=== PATIENT | female | born 1990 | race Caucasian/White ===

== ENCOUNTER 2021-05-11 07:05 | Emergency (ER) | payer OTHER ==
[~2021-05-11] VITALS: Ht 172.7 cm; Wt 61.2 kg
[2021-05-11] MEDS ORDERED: FAMOTIDINE 20 MG/2 ML VIAL IV STA (07:13)
[2021-05-11] MEDS ORDERED: CAPSAICIN 0.025% CREAM TP STA (07:13)
[2021-05-11] MEDS ORDERED: SODIUM CHLORIDE 0.9% 1000ML 1,000 ML IV STA (07:13)
[2021-05-11] MEDS ORDERED: METOCLOPRAMIDE HCL 10 MG/2ML VIAL IV ONE (07:15)
[2021-05-11] MEDS ORDERED: PROMETHAZINE HC25 M1 PO (07:26)
[2021-05-11 07:40] LABS: BASOPHILS # (AUTO) 0.1 (0.0-0.1); BASOPHILS % 0.4 % (0.0-1.0); EOSINOPHILS % 0.3 % (0.0-6.0); HEMOGLOBIN 12.8 g/dL (12.0-16.0); LYMPHOCYTES # (AUTO) 1.5 (1.0-3.2); MEAN CORPUSCULAR HEMOGLOBIN 33.8 pg (28-32); MEAN CORPUSCULAR HGB CONC 33.7 g/dL (31-35); MEAN CORPUSCULAR VOLUME 100.3 fL (81-99); MONOCYTES # (AUTO) 0.7 (0.2-0.8); NEUTROPHILS # (AUTO) 12.4 (2.1-6.9); NEUTROPHILS % 83.8 % (38.7-80.0); PLATELET COUNT 247 x10e3/uL (140-360); RED BLOOD COUNT 3.79 x10e6/uL (3.6-5.1); RED CELL DISTRIBUTION WIDTH 12.4 % (11.7-14.4)
[2021-05-11 07:56] LABS: CLARITY,URINE CLEAR (CLEAR); COLOR,URINE YELLOW (YELLOW); KETONES,URINE 1+ (NEGATIVE); LEUKOCYTE ESTERASE ,URINE NEGATIVE (NEGATIVE); NITRITE,URINE NEGATIVE (NEGATIVE); PROTEIN,URINE DIPSTICK 1+ (NEGATIVE); URINE UROBILINOGEN 0.2 mg/dL (0.2 - 1)
[2021-05-11 08:12] LABS: ALBUMIN 4.1 g/dL (3.5-5.0); ALBUMIN/GLOBULIN RATIO 1.7 (0.8-2.0); ANION GAP 13.9 mmol/L (8-16); BACTERIA,URINE MODERATE /HPF; CALCIUM 8.2 mg/dL (8.4-10.2); CREATININE, SERUM 0.79 mg/dL (0.57-1.11)
[2021-05-11 08:13] LABS: EPITHELIAL CELLS,URINE MODERATE /LPF
[2021-05-11 08:15] LABS: POTASSIUM 2.9 mmol/L (3.5-5.1)
[2021-05-11] MEDS ORDERED: KETOROLAC TROMETHAMINE 30 MG/ML VIAL IV STA (08:27)
[2021-05-11] MEDS ORDERED: DEXTROSE 5%/0.9% SOD CHL 1,000 ML IV ONE (08:30)
[2021-05-11] MEDS ORDERED: HALOPERIDOL LACTATE 5 MG/ML VIAL IM ONE (09:15)
[2021-05-11] MEDS ORDERED: CIPRO500 MG PO (10:41)
[2021-05-11] MEDS ORDERED: POTASSIUM CHLORIDE 20 MEQ TAB CR PO STA (10:43)
[2021-05-11 11:06] VITALS: BP 118/81
[2021-05-11] MEDS ORDERED: SODIUM CHLORIDE 0.9% 50ML 0 ML ONE (11:34)
[2021-05-11] MEDS ORDERED: SODIUM CHLORIDE 0.9% 50ML 50 ML ONE (11:34)
[2021-05-11] MEDS ORDERED: IOPAMIDOL 370 MG/ML 200 ML INFUS..BTL INJ ONE (11:34)
== END 2021-05-11 11:08 | disposition home or self-care (01) ==
LOC: ER 07:15
DX: R10.13 Epigastric pain (principal); R11.15 Cyclical vomiting syndrome unrelated to migraine; F32.A Depression, unspecified; F17.210 Nicotine dependence, cigarettes, uncomplicated
CPT/HCPCS: 36415; 74177; 80053; 81001; 81025; 83690; 85025; 99284; J1630; J1885; J2765; J7030; J7042; Q9967